=== PATIENT | male | born 1970 | race Caucasian/White ===

== ENCOUNTER 2023-05-07 22:32 | Emergency (ER) | payer BC, OTHER ==
--- OUTSIDE RECORDS SUMMARY | 2023-05-07 22:35 | XMS REPORT | Continuity of Care Document ---
:1970 Author Organization [facility] t Address [address] [address] Care Team Providers Name Role Phone PCP, PATIENT DOES NOT HAVE A Primary Care Physician Unavaila JOHAN Leyva Attending Clinician Unavailable JOHAN JIM Attending Clinician Unavailable Johan Jim MD Attending Clinician Doctor Unassigned, [place] Attending Clinician Unavailable Payers Payer Name Policy Type Policy Number Effective Date Expiration Date [facility] [id number] 2021 00:00:00 Problems Condition Condition Condition Status Onset Resolution Last Treating Co mments Source Name Details Category Date Date Treatment Clinician Date No known No known Disease Unive rs active active ity of problems problems [facility] Allergies, Adverse Reactions, Alerts Allergy Allergy Status Severity Reaction(s) Onset Inactive Treating Comm ents Source Name Type Date Date Clinician OXYCODON DRUG Active Hives Univers E INGREDI 11-17 ity of 00:00: [place] [address] [place] [address] Oxycodon Propensi Active Hives Univer s e ty to 09 ity of adverse 00:00: [place] reaction [address] [place] [address] s [place] Social History Social Habit Start Date Stop Date Quantity Comments Source History of Chews Tobacco University of tobacco use [facility] Exposure to Not sure University of SARS-CoV-2 [facility] (event) [place] Tobacco use and 2021-11-17 2021-11-17 Current user Univers ity of exposure 00:00:00 00:00:00 [facility] Sex Assigned At [birth year] Universit y of 00:00:00 00:00:00 [facility] Smoking Status Start Date Stop Date Source Never smoker [facility] Medications Ordered Filled Start Stop Current Ordering Indication Dosage Frequency Signature Comments Components Source Medication Medication Date Date Medication? Clinician (SIG) Name Name No known No Univers medications 3- ity of 15:50: [address] Vital Signs Vital Name Observation Time Observation Value Comments Source Systolic blood 2021-11-17 21:46:00 160 mm[Hg] Univer sity of [facility] Diastolic blood 2021-11-17 21:46:00 90 mm[Hg] Unive rsity [facility] Heart rate 2021-11-17 21:46:00 78 /min [facility] Respiratory rate 2021-11-17 21:46:00 22 /min [facility] Body height 2021-11-17 21:46:00 175.3 cm [facility] Body weight 2021-11-17 21:46:00 115.667 kg [facility] BMI 2021-11-17 21:46:00 37.66 kg/m2 [facility] Oxygen saturation in 2021-11-17 21:46:00 96 /min [facility] blood by [facility] Pulse oximetry Branch Procedures This patient has no known procedures. Encounters Start End Encounter Admission Attending Care Care Encounter Source Date/Time Date/Time Type Type Clinicians Facility Department ID 2022-01-11 2022-01-11 Outpatient R JOHAN JIM [facility] [id number] [facility] [place] [facility] 19:30:00 19:30:00 JOHAN JIM [facility] 2022-01-11 2022-01-11 Outpatient R [facility] [id number] Univers 08:00:00 08:00:00 [facility] 2022-01-08 2022-01-08 Outpatient R JOHAN JIM [facility] [id number] Univers 09:00:00 09:00:00 JOHAN JIM [facility] 2021-11-17 2021-11-17 Outpatient R JOHAN JIM [facility] [id number] Univers 15:20:00 16:02:52 JOHAN JIM [facility] 2021-11-17 2021-11-17 Office Diandra [email or web address] [id number] [facility] [place] [facility] 15:20:00 15:40:00 Visit Johan LEO [id number] ity [id number] [place] [id number] [facility] 2021-11-17 2021-11-17 Outpatient R JOHAN JIM [facility] [id number] [facility] [place] [facility] 15:20:00 15:20:00 JOHAN JIM [facility] 2021-11-17 2021-11-17 Orders Doctor KRISH [id number] Univers 00:00:00 00:00:00 Only Unassigned, DYLON [id number] ity of [place] [facility] [id number] Carl as [phone] [place] [id number] Branch Results This patient has no known results.
[2023-05-07] MEDS ORDERED: TDAP (DIPHTH,PERTUSS(ACELL),TET VAC) 0.5 ML VIAL IMVAC ONE (23:29)
[2023-05-08] MEDS ORDERED: MUPIROCIN 2% OINT 22GM TUBE TOP ONE (00:32)
--- NOTE | 2023-05-08 00:58 | EDPHYS ---
Physician Documentation [facility] Name: Khris Rios Age: 52 yrs Sex: Male : 1970 Arrival Date: 05/07/2023 Time: 22:32 Bed 4 Private MD: ED Physician Ten Gonzalez HPI: 05/07 23:32 This 52 yrs old Male presents to ER via Ambulatory with complaints of Fall Injury, snw Laceration To Head. 23:32 The patient or guardian reports a laceration, complex, swelling. The complaints affect snw the occiput. Context of injury: The problem [place]. Onset: The symptoms/episode began/occurred suddenly, just prior to arrival. Severity of symptoms: At their worst the symptoms were mild, moderate. The patient has not experienced similar symptoms in the [facility] Pt has had posterior neck surgery, C-collar placed on arrival to ED [address] snw completed. Historical: - Allergies: 22:52 Oxycodone; ap3 - Home Meds: 23:42 magnesium oxide 420 mg Oral tablet daily [Active]; doxycycline hyclate 100 mg Oral lg3 tablet 2 times per day [Active]; amlodipine 5 mg tablet daily [Active]; omeprazole 40 mg Oral capsule,delayed release (e.c.) daily [Active]; metoprolol tartrate 25 mg Oral tablet daily [Active]; divalproex 500 mg oral Tablet, Extended Release 24 hr nightly [Active]; topiramate 200 mg oral tablet 1.5 tabs every day at bedtime [Active]; cyclobenzaprine 10 mg Oral tablet PRN [Active]; losartan 25 mg oral tablet daily [Active]; gabapentin 400 mg oral capsule 3 caps 3 times per day [Active]; meclizine 12.5 mg Oral tablet 2 tabs 3 times per day [Active]; meloxicam 15 mg oral tablet daily [Active]; sumatriptam 20mg nasal spray PRN [Active]; zolpidem 10 mg Oral tablet every day at bedtime [Active]; - PMHx: 22:52 Hypertensive disorder; Kidney disease; ap3 - PSHx: 22:52 spinal sx 2017; ap3 - Immunization history:: Client reports receiving the 2nd dose of the Covid vaccine, Last tetanus immunization: up to date. - Social history:: Smoking status: Patient reports use of chewing tobacco. ROS: 23:32 Constitutional: Negative for fever, chills, and weight loss, Eyes: Negative for injury, snw pain, redness, and discharge, ENT: Negative for injury, pain, and discharge, Neck: Negative for injury, pain, and swelling, Cardiovascular: Negative for chest pain, palpitations, and edema, Respiratory: Negative for shortness of breath, cough, wheezing, and pleuritic chest pain, Abdomen/GI: Negative for abdominal pain, nausea, vomiting, diarrhea, and constipation, Back: Negative for injury and pain, : Negative for injury, bleeding, discharge, and swelling, MS/Extremity: Negative for injury and deformity, Skin: Negative for injury, rash, and discoloration. 23:32 Neuro: Positive for dizziness, visual changes, s/p fall. Exam: 22:51 Constitutional: This is a well developed, well nourished patient who is awake, alert, snw and in no acute distress. 22:51 Eyes: Pupils equal round and reactive to light, extra-ocular motions intact. Lids and lashes normal. Conjunctiva and sclera are non-icteric and not injected. Cornea within normal limits. Periorbital areas with no swelling, redness, or edema. ENT: Nares patent. No nasal discharge, no septal abnormalities noted. Tympanic membranes are normal and external auditory canals are clear. Oropharynx with no redness, swelling, or masses, exudates, or evidence of obstruction, uvula midline. Mucous membranes moist. 22:51 Chest/axilla: Normal chest wall appearance and motion. Nontender with no deformity. No lesions are appreciated. Cardiovascular: Regular rate and rhythm with a normal S1 and S2. No gallops, murmurs, or rubs. Normal PMI, no JVD. No pulse deficits. Respiratory: Lungs have equal breath sounds bilaterally, clear to auscultation and percussion. No rales, rhonchi or wheezes noted. No increased work of breathing, no retractions or nasal flaring. Abdomen/GI: Soft, non-tender, with normal bowel sounds. No distension or tympany. No guarding or rebound. No evidence of tenderness throughout. Back: No spinal tenderness. No costovertebral tenderness. Full range of motion. Skin: Warm, dry with normal turgor. Normal color with no rashes, no lesions, and no evidence of cellulitis. MS/ Extremity: Pulses equal, no cyanosis. Neurovascular intact. Full, normal range of motion. Psych: Awake, alert, with orientation to person, place and time. Behavior, mood, and affect are within normal limits. 22:51 Head/face: Noted is a laceration(s), that is jagged, of the occiput. 22:51 Neck: External neck: posterior scar, tender to touch. 22:51 Neuro: Orientation: is normal, Mentation: able to follow commands, Gait: not tested. seizure activity, is not displayed by the patient. Vital Signs: 22:51 BP 154 / 95; Pulse 88; Resp 18; Temp 98.4; Pulse Ox 100% ; Weight 113.4 kg; Pain 10/10; ap3 23:37 BP 147 / 91; Pulse 81; Resp 17 S; Pulse Ox 100% on R/A; lg3 22:51 Pain Scale: Adult ap3 Roberta Coma Score: 22:54 Eye Response: spontaneous(4). Motor Response: obeys commands(6). Verbal Response: ap3 oriented(5). Total: 15. 23:32 Eye Response: spontaneous(4). Motor Response: obeys commands(6). Verbal Response: snw oriented(5). Total: 15. 23:33 Eye Response: spontaneous(4). Motor Response: obeys commands(6). Verbal Response: snw oriented(5). Total: 15. Trauma Score (Adult): 05/08 01:11 Eye Response: spontaneous(1); Verbal Response: oriented(1); Motor Response: obeys ap3 commands(2); Systolic BP: > 89 mm Hg(4); Respiratory Rate: 10 to 29 per min(4); Maria Dolores Score: 15; Trauma Score: 12 Laceration: 05/07 23:51 Wound Repair of 3cm ( 1.2in ) subcutaneous laceration to scalp. Irregularly shaped.. snw hematoma beneath skin. Distal neuro/vascular/tendon intact. Anesthesia: Local anesthetic administered with 5 mls of 1% lidocaine. Wound prep: Moderate cleansing with betadine. Skin closed with 5 1-0 [place] using staple gun. Dressed with mupirocin. Patient tolerated well. MDM: 22:50 Patient medically screened. snw 23:33 Differential diagnosis: Contusion of Hematoma on Laceration of Intracranial bleed- snw Concussion. Data reviewed: vital signs, nurses notes, radiologic studies, CT scan. Counseling: I had a detailed discussion with the patient and/or guardian regarding the historical points, exam findings, and any diagnostic results supporting the discharge/admit diagnosis, the presence of at least one elevated blood pressure reading (>120/80) during this emergency department visit, radiology results, the need for outpatient follow up, for definitive care, to return to the emergency department if symptoms worsen or persist or if there are any questions or concerns that arise at home. Special discussion: Based on the patient's history, exam and DX evaluation, there is no indication for emergent intervention or inpatient [place]. It is understood by the patient/guardian that if the SXs persist or worsen they need to return immediately for re-evaluation. Based on the history and exam findings, there is no indication for further emergent testing or inpatient evaluation. I discussed with the patient/guardian the need to see the primary care provider for further evaluation of the symptoms. 05/07 22:51 Order name: CT Head C Spine snw 05/07 22:51 Order name: Wound Care; Complete Time: 00:30 snw Administered Medications: 23:32 Drug: Boostrix Tdap IM 0.5 ml Route: IM; Site: right deltoid; lg3 05/08 00:30 Follow up: Response: (VIS) Vaccine information sheet provided today. Questions and/or lg3 concerns addressed. VIS edition date: Apr 16, 2021.; No adverse reaction 00:31 Drug: Mupirocin Topical Ointment 2 % 1 application Route: Topical; Site: affected area; lg3 Disposition: 01:30 Co-signature as Attending Physician, Ten Gonzalez DO I was immediately available on-site ms3 in the Emergency Department for consultation in the care of the patient. Disposition Summary: 05/08/23 00:58 Discharge Ordered Location: Home snw Condition: Stable snw Diagnosis - Laceration with foreign body of scalp snw - Unspecified injury of head, initial encounter snw - Fall on same level from slipping, tripping and stumbling with subsequent striking snw against object Followup: snw - With: Emergency Department - When: 5 - 6 days - Reason: Worsening of condition, Staple/Suture removal Followup: snw - With: Private Physician - When: As needed - Reason: Discharge Instructions: - Discharge Summary Sheet snw - Head Injury, Adult snw - Hematoma snw - Sutures, [place], or Adhesive Wound Closure snw - How to Use Cold Therapy snw Forms: - Medication Reconciliation Form snw - Thank You Letter snw - Antibiotic Education snw - Prescription Opioid Use snw - Patient Portal Instructions snw - Leadership Thank You Letter snw Prescriptions: - mupirocin 2 % Topical Ointment Kit - apply 1 application by TOPICAL route 3 times per day; 15 gram; Refills: 0, snw Product Selection Permitted Signatures: Dispatcher [employer] EDBan Mcclellan FNP-C GLOBAL CEO-Csnw Alyssa Keller, RN RN ap3 Yanely Hester RN RN lg3 Ten Gonzalez DO DO ms3 Corrections: (The following items were deleted from the chart) 05/07 22:53 22:52 Allergies: No Known Allergies; ap3 ap3
--- NOTE | 2023-05-08 00:58 | ER ---
Nurse's Notes [facility] Name: Khris Rios Age: 52 yrs Sex: Male : 1970 Arrival Date: 05/07/2023 Time: 22:32 Bed 4 Private MD: Diagnosis: Laceration with foreign body of scalp;Unspecified injury of head, initial encounter;Fall on same level from slipping, tripping and stumbling with subsequent striking against object Presentation: 05/07 22:50 Chief complaint: Patient states: he was hooking up a boat on the boat ramp with he ap3 slipped and fell, hitting his back and the back of his head. patient presents to the ED with head and neck pain that he rates a 10/10 on the pain scale. patient denies LOC or being on blood thinners. Care prior to arrival: None. Mechanism of Injury: Fall from standing position. Trauma event details: Injury occurred in the [facility], Injury occurred: in a recreational area. Injury occurred: May 07, 2023. 22:50 Acuity: DAYANA 2 ap3 22:50 Method Of Arrival: Ambulatory ap3 22:51 Coronavirus screen: At this time, the client does not indicate any symptoms associated ap3 with coronavirus-19. Ebola Screen: No symptoms or risks identified at this time. Initial Sepsis Screen: Does the patient meet any 2 criteria? No. Patient's initial sepsis screen is negative. Does the patient have a suspected source of infection? No. Patient's initial sepsis screen is negative. Risk Assessment: Do you want to hurt yourself or someone else? Patient reports no desire to harm self or others. Onset of symptoms was May 07, 2023. Triage Assessment: 22:53 General: Appears uncomfortable, Behavior is calm, cooperative, appropriate for age. ap3 Pain: Complains of pain in face and neck Pain currently is 10 out of 10 on a pain scale. Neuro: Level of Consciousness is awake, alert, obeys commands, Oriented to person, place, time, situation. Cardiovascular: Patient's skin is warm and dry. Respiratory: Airway is patent Respiratory effort is even, unlabored, Respiratory pattern is regular, symmetrical. Historical: - Allergies: 22:52 Oxycodone; ap3 - Home Meds: 23:42 magnesium oxide 420 mg Oral tablet daily [Active]; doxycycline hyclate 100 mg Oral lg3 tablet 2 times per day [Active]; amlodipine 5 mg tablet daily [Active]; omeprazole 40 mg Oral capsule,delayed release (e.c.) daily [Active]; metoprolol tartrate 25 mg Oral tablet daily [Active]; divalproex 500 mg oral Tablet, Extended Release 24 hr nightly [Active]; topiramate 200 mg oral tablet 1.5 tabs every day at bedtime [Active]; cyclobenzaprine 10 mg Oral tablet PRN [Active]; losartan 25 mg oral tablet daily [Active]; gabapentin 400 mg oral capsule 3 caps 3 times per day [Active]; meclizine 12.5 mg Oral tablet 2 tabs 3 times per day [Active]; meloxicam 15 mg oral tablet daily [Active]; sumatriptam 20mg nasal spray PRN [Active]; zolpidem 10 mg Oral tablet every day at bedtime [Active]; - PMHx: 22:52 Hypertensive disorder; Kidney disease; ap3 - PSHx: 22:52 spinal sx 2017; ap3 - Immunization history:: Client reports receiving the 2nd dose of the Covid vaccine, Last tetanus immunization: up to date. - Social history:: Smoking status: Patient reports use of chewing tobacco. Screenin:54 Abuse screen: Denies threats or abuse. Nutritional screening: No deficits noted. ap3 Tuberculosis screening: No symptoms or risk factors identified. 23:32 [facility] ED Fall Risk Assessment (Adult) History of falling in the last 3 months, lg3 including since admission Yes- single mechanical fall (1 pt) Confusion or Disorientation No (0 pts) Intoxicated or Sedated No (0 pts) Impaired Gait No (0 pts) Mobility Assist Device Used No (0 pt) Altered Elimination No (0 pt). Primary Survey: 22:53 NO uncontrolled hemorrhage observed. Breathing/Chest: Spontaneous respiratory effort, ap3 equal unlabored respirations, breath sounds clear bilaterally, regular pattern, symmetrical chest rise and fall. Circulation:. Disability Client is alert. 05/08 01:11 Exposure/Environment: A warming method has been applied: A warm blanket has been ap3 provided to the patient. Reassessment Breathing: Spontaneous respiratory effort, equal unlabored respirations, breath sounds clear bilaterally, regular pattern with symmetrical chest rise and fall. Assessment: 05/07 23:32 General: Appears in no apparent distress. comfortable, Behavior is calm, cooperative. lg3 Pain: Complains of pain in scalp and back. Neuro: Arguelles Agitation-Sedation Scale (RASS): 0 - Alert and Calm Level of Consciousness is awake, alert, obeys commands, Oriented to person, place, time, situation. Cardiovascular: No deficits noted. Denies chest pain, shortness of breath, Capillary refill < 3 seconds Clubbing of nail beds is absent JVD is absent Patient's skin is warm and dry. Respiratory: No deficits noted. Airway is patent Respiratory effort is even, unlabored, Respiratory pattern is regular, symmetrical. GI: No deficits noted. No signs and/or symptoms were reported involving the gastrointestinal system. Abdomen is round non-distended. : No deficits noted. No signs and/or symptoms were reported regarding the genitourinary system. EENT: No deficits noted. No signs and/or symptoms were reported regarding the EENT system. Derm: Skin is intact, is healthy with good turgor, Skin is dry, Skin is normal, Skin temperature is warm Wound noted scalp. Musculoskeletal: No deficits noted. Circulation, motion, and sensation intact. Range of motion: intact in all extremities, Reports pain in back. Vital Signs: 22:51 BP 154 / 95; Pulse 88; Resp 18; Temp 98.4; Pulse Ox 100% ; Weight 113.4 kg; Pain 10/10; ap3 23:37 BP 147 / 91; Pulse 81; Resp 17 S; Pulse Ox 100% on R/A; lg3 22:51 Pain Scale: Adult ap3 Maria Dolores Coma Score: 22:54 Eye Response: spontaneous(4). Motor Response: obeys commands(6). Verbal Response: ap3 oriented(5). Total: 15. 23:32 Eye Response: spontaneous(4). Motor Response: obeys commands(6). Verbal Response: snw oriented(5). Total: 15. 23:33 Eye Response: spontaneous(4). Motor Response: obeys commands(6). Verbal Response: snw oriented(5). Total: 15. Trauma Score (Adult): 05/08 01:11 Eye Response: spontaneous(1); Verbal Response: oriented(1); Motor Response: obeys ap3 commands(2); Systolic BP: > 89 mm Hg(4); Respiratory Rate: 10 to 29 per min(4); Maria Dolores Score: 15; Trauma Score: 12 ED Course: 05/07 22:36 Patient arrived in ED. ag3 22:37 Ban Polk [facility]C [facility] snw 22:37 Ten Gonzalez DO is Attending Physician. snw 22:43 Nikhil Alaniz, YARON is Primary Nurse. bp 22:51 Triage completed. ap3 22:54 Arm band placed on right wrist. ap3 22:54 Patient maintains SpO2 saturation greater than 95% on room air. ap3 22:55 C-Collar applied. checked by provider. ap3 23:22 CT Head C Spine In Process Unspecified. EDMS 23:32 Patient has correct armband on for positive identification. Placed in gown. Bed in low lg3 position. Call light in reach. Side rails up X 1. Client placed on continuous cardiac and pulse oximetry monitoring. NIBP monitoring applied. territory account executive on. Door closed. Noise minimized. Warm blanket given. 05/08 01:11 No provider procedures requiring assistance completed. Patient did not have IV access ap3 during this emergency room visit. 01:12 Provided Education on: fall risk. ap3 01:12 Thermoregulation: warm blanket given to patient. ap3 Administered Medications: 05/07 23:32 Drug: Boostrix Tdap IM 0.5 ml Route: IM; Site: right deltoid; lg3 05/08 00:30 Follow up: Response: (VIS) Vaccine information sheet provided today. Questions and/or lg3 concerns addressed. VIS edition date: Apr 16, 2021.; No adverse reaction 00:31 Drug: Mupirocin Topical Ointment 2 % 1 application Route: Topical; Site: affected area; lg3 Medication: 05/07 23:32 Vaccine Information Statement (VIS) provided today. Questions and/or concerns lg3 addressed. VIS edition date: April 16, 2021. Intake: 05/08 01:12 PO: 0ml; Total: 0ml. ap3 Output: 01:12 Urine: 0ml; Total: 0ml. ap3 Outcome: 00:58 Discharge ordered by . snw 01:11 Discharged to home ambulatory. ap3 01:11 Condition: good 01:11 Condition: good 01:11 Discharge instructions given to patient, Instructed on discharge instructions, follow up and referral plans. medication usage, Demonstrated understanding of instructions, follow-up care, medications, Prescriptions given X 1. 01:12 Patient's length of stay was not longer than 2 hours. ap3 01:12 Patient left the ED. ap3 Signatures: Dispatcher [employer] EDMS Ban Polk, FOREIGN EXCHANGE POSITION CLERK-C FOREIGN EXCHANGE POSITION CLERK-Csnw Nikhil Alaniz, RN RN bp Alyssa Keller RN RN ap3 Daniella Price 3 Yanely Hester, RN RN lg3 Corrections: (The following items were deleted from the chart) 05/07 22:53 22:50 Chief complaint: Patient states: he was hooking up a boat on the boat ramp with ap3 he slipped and fell, hitting his back and the back of his head. patient presents to the ED with head and neck pain that he rates a 10/10 on the pain scale ap3 :53 22:52 Allergies: No Known Allergies; ap3 ap3 05/08 00:30 05/07 23:37 BP 147 / 91; Pulse 81bpm; Resp 07bpm; Spontaneous; Pulse Ox 100% RA; lg3 lg3
[2023-05-08 01:45] VITALS: TEMP 98.4; O2SAT 100
[2023-05-08 01:47] VITALS: BP 147/91
--- NOTE | 2023-05-09 12:34 | RAD REPORT ---
EXAM DESCRIPTION: CT - Head C Spine Mpr Wo Con - 05/08/2023 6:32 am CLINICAL HISTORY: The patient is 52 years old and is Male; [facility] MAIN TECHNIQUE: Axial computed tomography images of the head/brain and cervical spine without intravenous contrast. Sagittal and coronal reformatted images were created and reviewed. This CT exam was pe rformed using one or more of the following dose reduction techniques: automated exposure control, a djustment of the mA and/or kV according to patient size, and/or use of iterative reconstruction techn ique. COMPARISON: No relevant prior studies available. FINDINGS: BRAIN: No extra-axial fluid collection. No intracranial hemorrhage. No focal velazquez-white matter differentiation abnormality. MIDLINE SHIFT: No midline shift. VENTRICLES: Unremarkable. No ventriculomegaly. SKULL: See below. SINUSES: Postsurgical changes of the bilateral ethmoid air cells and sphenoid sinuses, with cortica l defect demonstrated between the left sphenoid sinus and sella turcica. MASTOID AIR CELLS: Unremarkable as visualized. No mastoid effusion. VERTEBRAE: Extensive anterior and posterior fixation hardware extending from the C2 through the T2 cervical spine posteriorly and the C3-C7 vertebra anteriorly, with the 3 through C6 laminectomy vazquez es. No evidence of hardware fracture, failure, or loosening. No acute fracture or subluxation. DISCS/SPINAL CANAL/NEURAL FORAMINA: No acute findings. No spinal canal stenosis. No transtentorial herniation. OTHER BONES/JOINTS: No fracture of the calvarium or visualized facial bones. SOFT TISSUES: Small midline superior posterior scalp hematoma noted. IMPRESSION: 1. Small midline superior posterior scalp hematoma noted. 2. No acute intracranial abnormality. 3. Extensive anterior and posterior fixation hardware extending from the C2 through the T2 cervical spine posteriorly and the C3-C7 vertebra anteriorly, with the 3 through C6 laminectomy changes. No acute cervical spine abnormality. Electronically signed by: Javier Bueno MD 05/07/2023 11:48 PM CDT Due to temporary technical issues with the PACS/Fluency reporting system, reports are being signed by the in house radiologists without review as a courtesy to insure prompt reporting. The interpreting radiologist is fully responsible for the content of the report.
== END 2023-05-08 01:12 | disposition home or self-care (01) ==
LOC: ER 22:32
PROC: 0HQ0XZZ Repair Scalp Skin, External Approach (ICD-10-PCS; principal; 2023-05-08)
DX: S01.01XA Laceration without foreign body of scalp, initial encounter (principal); W01.10XA Fall on same level from slipping, tripping and stumbling with subsequent striking against unspecified object, initial encounter
CPT/HCPCS: 70450; 72125; 96372; 99285

== ENCOUNTER 2024-01-10 13:13 | Emergency (ER) | payer OTHER ==
[2024-01-10 13:43] LABS: Absolute Basophils 0.1 K/uL (0-0.5); Absolute Eosinophils 0.2 K/uL (0-0.5); Absolute Lymphocytes (CBC) 1.9 K/uL (0.7-4.9); Absolute Monocytes 0.8 K/uL (0.1-1.3); Absolute Neutrophil 6.1 K/uL (1.8-8.0); Basophils % 0.8 % (0-1.3); Eosinophils % 2.5 % (0-4.4); Hematocrit 47.7 % (39.6-49.0); Hemoglobin 15.7 g/dL (13.6-17.9); Lymphocytes % 21.1 % (15.3-44.8); MCH 29.8 pg (27.0-35.0); MCHC 32.9 g/dL (32.0-36.0); MCV 90.5 fL (80-100); MPV 8.7 fL (7.6-11.3); Neutrophils % 66.6 % (41.7-73.7); PT Prothrombin Time 11.8 SECONDS (9.5-12.5); Platelets 284 thou/uL (152-406); Protime INR 1.07; RBC Red Blood Cell Count 5.27 M/uL (4.33-5.43); Red Cell Distribution Width 14.5 % (12.1-15.2)
[2024-01-10 14:08] LABS: Albumin 3.2 g/dL (3.4-5.0); Albumin/Globulin Ratio 0.7 (1.1-1.8); Anion Gap 4.9 mEq/L (5.0-15.0); Bilirubin Direct 0.1 mg/dL (0-0.2); Bilirubin Indirect, Calculated 0.3 mg/dL (0.2-0.8); Bilirubin Total 0.4 mg/dL (0.2-1.0); Globulin 4.3 g/dL (2.3-3.5); Magnesium 2.1 mg/dL (1.6-2.4); Potassium 3.9 mEq/L (3.5-5.1); Protein, Total 7.5 g/dL (6.4-8.2); Troponin High Sensitivity 3.3 pg/mL (<58.9)
--- NOTE | 2024-01-10 14:41 | RAD REPORT ---
EXAM DESCRIPTION: RAD - Chest Single View - 01/10/2024 2:28 pm CLINICAL HISTORY: CHEST PAIN Chest pain. COMPARISON: No comparisons FINDINGS: Portable technique limits examination quality. The lungs are grossly clear. The heart is normal in size. No displaced fractures.Cervical spine hardw are present. IMPRESSION: No acute intrathoracic process suspected.
--- NOTE | 2024-01-10 15:46 | EDPHYS ---
Physician Documentation [facility] Name: Khris Rios Age: 53 yrs Sex: Male : 1970 Arrival Date: 01/10/2024 Time: 13:13 Bed 6 Private MD: ED Physician Ap Collado HPI: 01/09 13:22 This 53 yrs old Male presents to ER via EMS with complaints of chest pain. 3 13:22 53-year-old male with history of hypertension, hyperlipidemia, reflux now presents to [facility] the ED with 2 days of chest pain referred from the [facility] where he initially presented. Twelve-lead EKG prehospital and at the clinic demonstrated no significant abnormalities. Patient had a cardiac catheterization approximately 2 years ago at the [facility] which he states demonstrated no significant abnormalities. His last exercise stress test was approximately 1 year ago also done at the [place]. He denies any other symptoms including headache, fever, URI symptoms, cough, vomiting, diarrhea, abdominal pain, rash, syncope, near syncope or any other signs or symptoms on ROS at this time. He does endorse mild shortness of breath as well on exertion.. Historical: - Allergies: 13:20 Oxycodone; nj1 13:20 COVID vaccine; nj1 - PMHx: 13:20 Hypertensive disorder; kidney disease; Hypercholesterolemia; Depressive disorder; nj1 Gastric reflux; Migraine; - Immunization history:: Client reports receiving the 1st dose of the Covid vaccine. - Infectious Disease History:: Denies. - Social history:: Smoking status: Patient reports use of chewing tobacco. ROS: 13:24 Constitutional: Negative for fever, chills, and weight loss, Eyes: Negative for injury, sp3 pain, redness, and discharge, ENT: Negative for injury, pain, and discharge, Neck: Negative for injury, pain, and swelling, Abdomen/GI: Negative for abdominal pain, nausea, vomiting, diarrhea, and constipation, Back: Negative for injury and pain, MS/Extremity: Negative for injury and deformity, Skin: Negative for injury, rash, and discoloration, Neuro: Negative for headache, weakness, numbness, tingling, and seizure, Psych: Negative for depression, anxiety, suicide ideation, homicidal ideation, and hallucinations, Allergy/Immunology: Negative for hives, rash, and allergies, Endocrine: Negative for neck swelling, polydipsia, polyuria, polyphagia, and marked weight changes, 13:24 All other systems are negative, Exam: 13:24 Constitutional: This is a well developed, well nourished patient who is awake, alert, sp3 and in no acute distress. Head/Face: Normocephalic, atraumatic. Eyes: Pupils equal round and reactive to light, extra-ocular motions intact. Lids and lashes normal. Conjunctiva and sclera are non-icteric and not injected. Cornea within normal limits. Periorbital areas with no swelling, redness, or edema. Neck: Trachea midline, no thyromegaly or masses palpated, and no cervical lymphadenopathy. Supple, full range of motion without nuchal rigidity, or vertebral point tenderness. No Meningismus. Chest/axilla: Normal chest wall appearance and motion. Nontender with no deformity. No lesions are appreciated. Cardiovascular: Regular rate and rhythm with a normal S1 and S2. No gallops, murmurs, or rubs. Normal PMI, no JVD. No pulse deficits. Respiratory: Lungs have equal breath sounds bilaterally, clear to auscultation and percussion. No rales, rhonchi or wheezes noted. No increased work of breathing, no retractions or nasal flaring. Abdomen/GI: Soft, non-tender, with normal bowel sounds. No distension or tympany. No guarding or rebound. No evidence of tenderness throughout. Back: No spinal tenderness. No costovertebral tenderness. Full range of motion. Skin: Warm, dry with normal turgor. Normal color with no rashes, no lesions, and no evidence of cellulitis. MS/ Extremity: Pulses equal, no cyanosis. Neurovascular intact. Full, normal range of motion. Neuro: Awake and alert, GCS 15, oriented to person, place, time, and situation. Cranial nerves II-XII grossly intact. Motor strength 5/5 in all extremities. Sensory grossly intact. Cerebellar exam normal. Normal gait. Psych: Awake, alert, with orientation to person, place and time. Behavior, mood, and affect are within normal limits. 13:24 ECG was reviewed by the Attending Physician. EKG demonstrates normal sinus rhythm at 86 bpm with normal normals, normal QRS, normal axis, nonspecific ST's ST changes without any evidence of acute ischemia. Vital Signs: 13:09 BP 134 / 81; Pulse 86; Resp 14; Temp 98.5(O); Pulse Ox 98% on R/A; Weight 106.59 kg; nj1 Height 5 ft. 10 in. ; Pain 3/10; 13:36 BP 126 / 83; Pulse 88; Resp 18 S; Pulse Ox 97% on R/A; kc6 14:34 BP 137 / 95; Pulse 87; Resp 16; Pulse Ox 99% ; ko1 15:30 BP 142 / 84; Pulse 87; Resp 19 S; Pulse Ox 96% on R/A; kc6 13:09 Body Mass Index 33.72 (106.59 kg, 177.8 cm) nj1 13:09 Pain Scale: Adult nj1 MDM: 13:16 Patient medically screened. sp3 13:26 Data reviewed: vital signs, nurses notes, lab test result(s), EKG, radiologic studies. sp3 ED course: 53-year-old male with chest pain. Differential diagnosis includes acute coronary syndrome, esophageal reflux, pleurisy, musculoskeletal pain, among others. I am not highly suspicious for pulm embolism, thoracic aortic dissection or other critical pathology. Workup will include chest x-ray, EKG, laboratory values with possible observation depending on patient course and workup.. 14:52 ED course: Discussed with patient risk and benefits of 23-hour observation versus 2 sp3 troponin and follow-up with cardiology. Patient elects to get second troponin and be discharged. Given his recent normal cardiac workup, I believe this is safe. Chest x-ray and remainder of labs are within normal limits with exception of his creatinine at 1.75 which she states is his baseline. Pain is resolved at this time. We will safely discharge him home pending second troponin.. 01/09 13:16 Order name: Basic Metabolic Panel; Complete Time: 14:23 sp3 01/09 13:16 Order name: CBC with Diff; Complete Time: 14:23 sp3 01/09 13:16 Order name: LFT's; Complete Time: 14:23 sp3 01/09 13:16 Order name: Magnesium; Complete Time: 14:23 sp3 01/09 13:16 Order name: NT PRO-BNP; Complete Time: 14:23 sp3 01/09 13:16 Order name: PT-INR; Complete Time: 14:23 sp3 01/09 13:16 Order name: Troponin HS; Complete Time: 14:23 sp3 01/09 14:52 Order name: Troponin High Sensitivity: Draw at 3 PM; Complete Time: 15:39 sp3 01/09 13:16 Order name: XRAY Chest (1 view); Complete Time: 14:51 sp3 01/09 13:16 Order name: EKG; Complete Time: 13:17 sp3 01/09 13:16 Order name: Cardiac monitoring; Complete Time: 13:25 sp3 01/09 13:16 Order name: EKG - Nurse/Tech; Complete Time: 13:25 sp3 01/09 13:16 Order name: IV Saline Lock; Complete Time: 13:31 sp3 01/09 13:16 Order name: Labs collected and sent; Complete Time: : sp3 01/09 13:16 Order name: O2 Per Protocol; Complete Time: 13:25 sp3 01/09 13:16 Order name: O2 Sat Monitoring; Complete Time: 13:25 sp3 Administered Medications: No medications were administered Disposition Summary: 01/10/24 15:46 Discharge Ordered Notes: Location: Home sp3 Condition: Stable sp3 Diagnosis - Chest pain, unspecified sp3 Followup: sp3 - With: Private Physician - When: Upon discharge from the Emergency Department - Reason: Continuance of care Discharge Instructions: - Discharge Summary Sheet sp3 - Nonspecific Chest Pain, Adult sp3 Forms: - Medication Reconciliation Form sp3 - Antibiotic Education sp3 - Prescription Opioid Use sp3 - Patient Portal Instructions sp3 - Leadership Thank You Letter sp3 Signatures: Dispatcher [employer] EDMS Ap Collado MD MD sp3 Karlie Buckley RN RN kc6 Siobhan Aguero RN RN nj1 Corrections: (The following items were deleted from the chart) 14:52 14:52 Troponin High Sensitivity+C.LAB.BRZ ordered. EDMS EDMS
--- NOTE | 2024-01-10 15:46 | ER ---
Nurse's Notes [facility] Name: Khris Rios Age: 53 yrs Sex: Male : 1970 Arrival Date: 01/10/2024 Time: 13:13 Bed 6 Private MD: Diagnosis: Chest pain, unspecified Presentation: 01/09 13:09 Chief complaint: EMS states: Chest pain for the last 2-3 days, intermittent in nj1 severity. Seen at [facility] today, given 81mg ASA there and sent over to ED for further evaluation and treatment. 243mg of ASA given by EMS. 13:09 Coronavirus screen: Vaccine status: Patient reports receiving the 1st dose of the Covid nj1 vaccine. Ebola Screen: Patient denies travel to an Ebola-affected area in the 21 days before illness onset. Initial Sepsis Screen: Does the patient meet any 2 criteria? No. Patient's initial sepsis screen is negative. Does the patient have a suspected source of infection? No. Patient's initial sepsis screen is negative. Risk Assessment: Do you want to hurt yourself or someone else? Patient reports no desire to harm self or others. Onset of symptoms was December 2023. 13:09 Method Of Arrival: EMS: [facility] 13:09 Acuity: DAYANA 3 nj1 Historical: - Allergies: 13:20 Oxycodone; nj1 13:20 COVID vaccine; nj1 - PMHx: 13:20 Hypertensive disorder; kidney disease; Hypercholesterolemia; Depressive disorder; nj1 Gastric reflux; Migraine; - Immunization history:: Client reports receiving the 1st dose of the Covid vaccine. - Infectious Disease History:: Denies. - Social history:: Smoking status: Patient reports use of chewing tobacco. Screenin:34 [facility] ED Fall Risk Assessment (Adult) History of falling in the last 3 months, kc6 including since admission No falls in past 3 months (0 pts) Confusion or Disorientation No (0 pts) Intoxicated or Sedated No (0 pts) Impaired Gait No (0 pts) Mobility Assist Device Used No (0 pt) Altered Elimination No (0 pt) Score/Fall Risk Level 0 - 2 = Low Risk. Abuse screen: Denies threats or abuse. Denies injuries from another. Nutritional screening: No deficits noted. Tuberculosis screening: No symptoms or risk factors identified. Assessment: 13:35 General: Appears in no apparent distress. comfortable, well groomed, well developed, kc6 Behavior is calm, cooperative, appropriate for age. Pain: Complains of pain in chest. Neuro: Level of Consciousness is awake, alert, obeys commands, Oriented to person, place, time, situation, Appropriate for age. Cardiovascular: Capillary refill < 3 seconds. Respiratory: Airway is patent Trachea midline Respiratory effort is even, unlabored, Respiratory pattern is regular, symmetrical. GI: No signs and/or symptoms were reported involving the gastrointestinal system. : No signs and/or symptoms were reported regarding the genitourinary system. EENT: No signs and/or symptoms were reported regarding the EENT system. Derm: No signs and/or symptoms reported regarding the dermatologic system. Skin is intact, is healthy with good turgor, Skin is pink, warm \T\ dry. Musculoskeletal: No signs and/or symptoms reported regarding the musculoskeletal system. Circulation, motion, and sensation intact. Capillary refill < 3 seconds, Range of motion: intact in all extremities. 14:35 Reassessment: Patient appears in no apparent distress at this time. No changes from kc6 previously documented assessment. Patient and/or family updated on plan of care and expected duration. Pain level reassessed. Patient is alert, oriented x 3, equal unlabored respirations, skin warm/dry/pink. 15:30 Reassessment: Patient appears in no apparent distress at this time. No changes from kc6 previously documented assessment. Patient and/or family updated on plan of care and expected duration. Pain level reassessed. Patient is alert, oriented x 3, equal unlabored respirations, skin warm/dry/pink. Vital Signs: 13:09 BP 134 / 81; Pulse 86; Resp 14; Temp 98.5(O); Pulse Ox 98% on R/A; Weight 106.59 kg; nj1 Height 5 ft. 10 in. ; Pain 3/10; 13:36 BP 126 / 83; Pulse 88; Resp 18 S; Pulse Ox 97% on R/A; kc6 14:34 BP 137 / 95; Pulse 87; Resp 16; Pulse Ox 99% ; ko1 15:30 BP 142 / 84; Pulse 87; Resp 19 S; Pulse Ox 96% on R/A; kc6 13:09 Body Mass Index 33.72 (106.59 kg, 177.8 cm) nj1 13:09 Pain Scale: Adult [facility] ED Course: 13:15 Patient arrived in ED. sb4 13:16 Ap Collado MD is Attending Physician. sp3 13:20 Triage completed. nj1 13:31 Basic Metabolic Panel Sent. bc6 13:31 CBC with Diff Sent. bc6 13:31 LFT's Sent. bc6 13:31 Magnesium Sent. bc6 13:31 NT PRO-BNP Sent. bc6 13:31 PT-INR Sent. bc6 13:31 Troponin HS Sent. bc6 13:31 Initial lab(s) drawn, by me, sent to lab. Inserted saline lock: 20 gauge in right bc6 antecubital area, using aseptic technique. Blood collected. 13:34 Karlie Buckley, RN is Primary Nurse. kc6 13:34 Arm band placed on. EKG completed in triage. Results shown to MD. kc6 13:35 Patient has correct armband on for positive identification. Bed in low position. Call kc6 light in reach. Side rails up X2. Client placed on continuous cardiac and pulse oximetry monitoring. NIBP monitoring applied. engine monitor on. Warm blanket given. Pillow given. 14:29 XRAY Chest (1 view) In Process Unspecified. EDMS 15:06 Troponin High Sensitivity: Draw at 3 PM Sent. ko1 15:13 Repeat lab(s) drawn. by me, sent to lab. ko1 15:57 No provider procedures requiring assistance completed. IV discontinued, intact, kc6 bleeding controlled, No redness/swelling at site. Pressure dressing applied. Administered Medications: No medications were administered Medication: 15:57 VIS not applicable for this client. kc6 Outcome: 15:46 Discharge ordered by . sp3 15:57 Discharged to home ambulatory, with significant other, kc6 15:57 Condition: improved 15:57 Discharge instructions given to patient, significant other, Instructed on discharge instructions, follow up and referral plans. Demonstrated understanding of instructions, follow-up care, 15:57 Patient left the ED. kc6 Signatures: Dispatcher [employer] EDMS Ap Collado MD MD sp3 Karlie Buckley, RN RN kc6 Mary Braun RN RN ko1 Ning Damico PAVeronicaC PA-C sb4 Bernna Rashid bc6 Laci, Siobhan, RN RN nj1
[2024-01-10 16:22] VITALS: BP 142/84; O2SAT 96
--- NOTE | 2024-01-11 13:28 | EKG ---
Test Date: 2024-01-10 Test Time: 13:20:55 Community Engagement Manager: MEG MEASUREMENT RESULTS: Intervals: Rate: 86 NV: 146 QRSD: 82 QT: 370 QTc: 442 Gorman: P: 13 NV: 146 QRS: 41 T: 35 INTERPRETIVE STATEMENTS: Normal sinus rhythm Normal ECG No previous ECG available for comparison Electronically Signed On 01-11-24 13:27:02 CDT by Maikel Sorensen
== END 2024-01-10 15:57 | disposition home or self-care (01) ==
LOC: ER 13:13
DX: R07.9 Chest pain, unspecified (principal); I10 Essential (primary) hypertension; F17.220 Nicotine dependence, chewing tobacco, uncomplicated; Z88.5 Allergy status to narcotic agent; Z88.7 Allergy status to serum and vaccine
CPT/HCPCS: 36415; 71045; 80048; 80076; 83735; 83880; 84484; 85025; 85610; 93005; 99284